=== PATIENT | male | born 1990 | race Caucasian/White ===

== ENCOUNTER 2016-12-13 16:17 | Emergency (ER) | payer SELFPAY ==
[~2016-12-13] VITALS: Wt 78.0 kg
[2016-12-13] MEDS ORDERED: SOD CHLORIDE 0.9% 1,000 ML IV STA (17:50)
[2016-12-13 18:06] LABS: ADD SCAN DIFF NO
[2016-12-13 18:08] LABS: BASOPHIL # 0.1 10^3/ul (0.0-0.1); BASOPHILS % 0.6 % (0.0-2.0); EOSINOPHILS # 0.2 10^3/ul (0.0-0.5); EOSINOPHILS % 1.8 % (0.0-7.0); HEMATOCRIT 41.5 % (42.0-52.0); HEMOGLOBIN 14.1 g/dl (14.0-18.0); LYMPHOCYTES # 1.8 10^3/ul (0.8-2.9); LYMPHOCYTES % 20.3 % (15.0-51.0); MEAN CORPUSCULAR HEMOGLOBIN 29.2 pg (29.0-33.0); MEAN CORPUSCULAR VOLUME 85.9 fl (82.0-101.0); MEAN PLATELET VOLUME 9.2 fl (7.4-10.4); MONOCYTE # 0.6 10^3/ul (0.3-0.9); MONOCYTES % 6.5 % (0.0-11.0); NEUTROPHIL # 6.2 10^3/ul (1.6-7.5); NEUTROPHILS % 70.3 % (39.0-77.0); PLATELET COUNT 308 10^3/UL (140-415); RED BLOOD COUNT 4.83 10^6/ul (4.70-6.10); RED CELL DISTRIBUTION WIDTH 12.3 % (11.5-14.5); WHITE BLOOD COUNT 8.8 10^3/ul (4.8-10.8)
[2016-12-13] MEDS ORDERED: SOD CHLORIDE 0.9% 100 ML ONE (18:27)
[2016-12-13] MEDS ORDERED: IOHEXOL 300MG/ML 150 ML BTL ONE (18:27)
[2016-12-13 18:28] LABS: ALBUMIN 4.1 g/dl (3.3-4.9); POTASSIUM 3.4 mmol/L (3.5-5.1)
[2016-12-13 18:30] LABS: CREATININE 0.68 mg/dl (0.61-1.24)
[2016-12-13 18:31] LABS: ALBUMIN/GLOBULIN RATIO 1.24; BILIRUBIN,INDIRECT 0.2 mg/dl (0-1.1); BILIRUBIN,TOTAL 0.2 mg/dl (0.2-1.3); CALCIUM 8.9 mg/dl (8.4-10.2); TOTAL PROTEIN 7.4 g/dl (6.1-8.1)
--- NOTE | 2016-12-13 19:12 | ERD ---
ER Documentation Chief Complaint Date/Time DATE: 12/13/16 TIME: 19:10 Chief Complaint R LEG PAIN X 2 WEEKS; POSSIBLE ABSCESS HPI Patient is a 26-year-old male who states he has had some purulent drainage from his rectum for the past 3 months since he had a rectal surgery to remove an abscess. He is not on any antibiotics at this time and states he has not been. He denies fever. He is passing normal bowel movements but it is painful. No blood in the stool. No nausea or vomiting. ROS All systems reviewed and are negative except as per history of present illness. Medications Home Meds Active Scripts Cephalexin* (Keflex*) 500 Mg Capsule, 500 MG PO QID for 7 Days, CAP Prov:JULIETTE VALADEZ PA-C 12/13/16 Sulfamethoxazole/Trimethoprim* (Bactrim Ds* Tablet) 1 Each Tablet, 1 TAB PO BID , #14 TAB Prov:JULIETTE VALADEZ PA-C 12/13/16 Allergies Allergies: Coded Allergies: No Known Allergy (Unverified , 12/13/16) PMhx/Soc History of Surgery: No Anesthesia Reaction: No Hx Neurological Disorder: No Hx Respiratory Disorders: No Hx Cardiac Disorders: No Hx Psychiatric Problems: No Hx Miscellaneous Medical Probl: No Hx Alcohol Use: No Hx Substance Use: No Hx Tobacco Use: No FmHx Family History: No diabetes Physical Exam Vitals Vital Signs Date Time Temp Pulse Resp B/P Pulse Ox O2 Delivery O2 Flow Rate FiO2 12/13/16 16:35 98.9 77 18 135/80 99 Physical Exam General: well developed, well nourished, alert, nontoxic, no distress Head: normocephalic, atraumatic Neck: Supple, nontender, no lymphadenopathy, no midline tenderness Respiratory: Clear to auscaultation bilaterally, speaks in full sentences, no use of accesory muscles or labored breathing, no rales, ronchi, or wheezing Cardiovascular: RRR, No murmurs GI: soft, non tender, non distended, negative murphys sign, negative mcburneys point tenderness, no cva tenderness bilaterally, no rebound or guarding Rectal: Normal rectal tone, no bleeding but scant drainage around the anus Result Diagram: 12/13/16 1800 12/13/16 1800 Results 24 hrs Laboratory Tests Test 12/13/16 18:00 White Blood Count 8.810^3/ul Red Blood Count 4.8310^6/ul Hemoglobin 14.1g/dl Hematocrit 41.5% Mean Corpuscular Volume 85.9fl Mean Corpuscular Hemoglobin 29.2pg Mean Corpuscular Hemoglobin Concent 34.0g/dl Red Cell Distribution Width 12.3% Platelet Count 92031^3/UL Mean Platelet Volume 9.2fl Neutrophils % 70.3% Lymphocytes % 20.3% Monocytes % 6.5% Eosinophils % 1.8% Basophils % 0.6% Nucleated Red Blood Cells % 0.0/100WBC Neutrophils # 6.210^3/ul Lymphocytes # 1.810^3/ul Monocytes # 0.610^3/ul Eosinophils # 0.210^3/ul Basophils # 0.110^3/ul Nucleated Red Blood Cells # 0.010^3/ul Sodium Level 139mmol/L Potassium Level 3.4mmol/L Chloride Level 99mmol/L Carbon Dioxide Level 27mmol/L Anion Gap 16 Blood Urea Nitrogen 14mg/dl Creatinine 0.68mg/dl Glucose Level 103mg/dl Calcium Level 8.9mg/dl Total Bilirubin 0.2mg/dl Direct Bilirubin 0.00mg/dl Indirect Bilirubin 0.2mg/dl Aspartate Amino Transf (AST/SGOT) 25IU/L Alanine Aminotransferase (ALT/SGPT) 63IU/L Alkaline Phosphatase 71IU/L Total Protein 7.4g/dl Albumin 4.1g/dl Globulin 3.30g/dl Albumin/Globulin Ratio 1.24 Lipase 63U/L Current Medications Medications (Trade) Dose Ordered Sig/Lobo Route PRN Reason Start Time Stop Time Status Last Admin Dose Admin Sodium Chloride (NS) 1,000 ml @ 1,000 mls/hr Q1H STAT IV 12/13/16 17:50 12/13/16 18:49 DC 12/13/16 18:02 IV Flush 10 ml 10 ml STK-MED ONCE .ROUTE 12/13/16 18:27 12/13/16 18:28 DC 12/13/16 18:48 Sodium Chloride (NS) 100 ml @ ud STK-MED ONCE .ROUTE 12/13/16 18:27 12/13/16 18:28 DC 12/13/16 18:48 Iohexol (Omnipaque 300mg/ ml) 150 ml STK-MED ONCE .ROUTE 12/13/16 18:27 12/13/16 18:28 DC 12/13/16 18:48 Procedures/MDM Patient presents with purulent drainage from his anus. This is been going on for 3 months. Vital signs are normal. No elevated white blood cell count. Labs unremarkable. CT abdomen and pelvis with contrast was unremarkable. No evidence of perirectal abscess. Patient is discharged with Bactrim and Keflex. Recommended this patient follow up with her primary care doctor within 48 hours or return to the emergency room for any worsening of symptoms. However this time I do believe there is suitable for outpatient management. I answered all their questions and they agreed with the plan and were discharged home. Departure Diagnosis: Primary Impression: Perianal abscess Condition: Stable JULIETTE VALADEZ PA-C December 13, 2016 19:11
--- NOTE | 2016-12-13 19:13 | RADRPT ---
PROCEDURE: CT Abdomen and Pelvis with contrast. CLINICAL INDICATION: Abdominal pain TECHNIQUE: CT scan of the abdomen and pelvis with contrast was performed on a multidetector high-r esolution CT scanner. Coronal and sagittal reformatted images were obtained from the axial source im ages. Images were reviewed on a high-resolution PACS workstation. 80 cc of Isovue 300 iodinated cont rast was administered intravenously without reported complication. The total exam CTDI equals 19 mG y and the total exam DLP equals 1248 mGy-cm. One or more of the following dose reduction techniques were used: Automated exposure control, Adjustment of the mA and/or kV according to patient size, an d/or use of iterative reconstruction technique. COMPARISON: None. FINDINGS: The lung bases are clear. No suspicious hepatic mass. The portal vein is patent. The pancreas, spleen and adrenals are unrem arkable. No focal pericholecystic inflammatory changes. No hydronephrosis. No obstructing renal stone. No bowel obstruction. Normal-caliber appendix. No significant retroperitoneal lymphadenopathy, ascites or evidence of pneumoperitoneum. IMPRESSION: No acute intra-abdominal process identified. RPTAT: AA .Gabriel Zimmerman MD, MD Date Time Electronically viewed and signed by .Gabriel Zimmerman MD, on 12/13/2016 19:12 .T/
[2016-12-13] MEDS ORDERED: CEPH-443 PO (19:16)
[2016-12-13] MEDS ORDERED: SULF1TAB31 PO (19:16)
[2016-12-13] MEDS ORDERED: HYDR-906 PO (19:19)
[2016-12-13 19:29] VITALS: BP 122/77; PULSE 61; RESP 16; TEMP 98.8
== END 2016-12-13 19:29 | disposition home or self-care (01) ==
LOC: FTE 16:17
DX: K61.0 Anal abscess (principal)
CPT/HCPCS: 36415; 74177; 80053; 83690; 85025; 99285; J7030; Q9967